=== PATIENT | male | born 1950 | race Two or more races ===

== ENCOUNTER 2017-10-18 11:08 | Inpatient (IN) | payer OTHER ==
[~2017-10-18] VITALS: Ht 167.6 cm; Wt 55.3 kg
[2017-10-18] MEDS ORDERED: FLAGYL500MG (11:19)
[2017-10-18] MEDS ORDERED: PROTONIX20 MG (11:20)
[2017-10-18] MEDS ORDERED: ALDACTONE50 MG (11:20)
[2017-10-25] MEDS ORDERED: PROTONIX40 MG PO (13:24)
[2017-10-25] MEDS ORDERED: SPIRONOLACTONE25 MG PO (13:24)
[2017-10-25] MEDS ORDERED: LACTULOSE20 GM/30 M PO (13:24)
== END 2017-10-25 17:33 | disposition home or self-care (01) | DRG 433 ==
LOC: ER 11:08 → MEDI 16:57
PROC: BW40ZZZ Ultrasonography of Abdomen (ICD-10-PCS; 2017-10-18)
PROC: BW25Y0Z Computerized Tomography (CT Scan) of Chest, Abdomen and Pelvis using Other Contrast, Unenhanced and Enhanced (ICD-10-PCS; 2017-10-18)
PROC: 0W9G3ZX Drainage of Peritoneal Cavity, Percutaneous Approach, Diagnostic (ICD-10-PCS; principal; 2017-10-21)
PROC: BF37ZZZ Magnetic Resonance Imaging (MRI) of Pancreas (ICD-10-PCS; 2017-10-21)
DX: K70.31 Alcoholic cirrhosis of liver with ascites (principal); D68.4 Acquired coagulation factor deficiency; D69.59 Other secondary thrombocytopenia; K59.09 Other constipation; K80.80 Other cholelithiasis without obstruction

== ENCOUNTER 2018-01-18 12:38 | Inpatient (IN) | payer OTHER ==
[~2018-01-18] VITALS: Ht 167.6 cm; Wt 54.4 kg
[~2018-01-18 12:38] MED LIST: ALDACTONE50 MG; FLAGYL500MG; LACTULOSE20 GM/30 M PO; PROTONIX20 MG; PROTONIX40 MG PO; SPIRONOLACTONE25 MG PO
== END 2018-01-26 21:20 | disposition expired | DRG 377 ==
LOC: ER 12:38 → MEDJ 01-19 09:13 → MEDI 01-19 09:13 → MEDJ 01-26 21:20
PROC: 30233N1 Transfusion of Nonautologous Red Blood Cells into Peripheral Vein, Percutaneous Approach (ICD-10-PCS; 2018-01-19)
PROC: 0W9G3ZX Drainage of Peritoneal Cavity, Percutaneous Approach, Diagnostic (ICD-10-PCS; principal; 2018-01-22)
PROC: 4A033R1 Measurement of Arterial Saturation, Peripheral, Percutaneous Approach (ICD-10-PCS; 2018-01-24)
PROC: 3E0F7GC Introduction of Other Therapeutic Substance into Respiratory Tract, Via Natural or Artificial Opening (ICD-10-PCS; 2018-01-24)
PROC: 4A12X4Z Monitoring of Cardiac Electrical Activity, External Approach (ICD-10-PCS; 2018-01-24)
PROC: 30233L1 Transfusion of Nonautologous Fresh Plasma into Peripheral Vein, Percutaneous Approach (ICD-10-PCS; 2018-01-24)
PROC: 5A09457 Assistance with Respiratory Ventilation, 24-96 Consecutive Hours, Continuous Positive Airway Pressure (ICD-10-PCS; 2018-01-24)
PROC: 5A1945Z Respiratory Ventilation, 24-96 Consecutive Hours (ICD-10-PCS; 2018-01-25)
PROC: 0BH17EZ Insertion of Endotracheal Airway into Trachea, Via Natural or Artificial Opening (ICD-10-PCS; 2018-01-25)
PROC: 0W9G3ZZ Drainage of Peritoneal Cavity, Percutaneous Approach (ICD-10-PCS; 2018-01-25)
PROC: 3E0336Z Introduction of Nutritional Substance into Peripheral Vein, Percutaneous Approach (ICD-10-PCS; 2018-01-25)
PROC: 02HV33Z Insertion of Infusion Device into Superior Vena Cava, Percutaneous Approach (ICD-10-PCS; 2018-01-26)
PROC: 30233R1 Transfusion of Nonautologous Platelets into Peripheral Vein, Percutaneous Approach (ICD-10-PCS; 2018-01-26)
DX: K92.2 Gastrointestinal hemorrhage, unspecified (principal); K85.10 Biliary acute pancreatitis without necrosis or infection; J96.01 Acute respiratory failure with hypoxia; K72.00 Acute and subacute hepatic failure without coma; R65.21 Severe sepsis with septic shock; D65 Disseminated intravascular coagulation [defibrination syndrome]; K76.7 Hepatorenal syndrome; A41.51 Sepsis due to Escherichia coli [E. coli]; D68.4 Acquired coagulation factor deficiency; D62 Acute posthemorrhagic anemia; N17.8 Other acute kidney failure; E87.2 Acidosis; E27.49 Other adrenocortical insufficiency; K59.09 Other constipation; K70.31 Alcoholic cirrhosis of liver with ascites; E16.1 Other hypoglycemia; Z66 Do not resuscitate